=== PATIENT | male | born 1975 | race Caucasian/White ===

== ENCOUNTER → 2017-03-17 | Outpatient (CLI) | payer OTHER ==
[2017-03-17 08:00] LABS: ADJUSTED CALCIUM 9.1 mg/dL (8.4-10.2); ALBUMIN 4.4 gm/dL (3.5-5.0); BILIRUBIN,TOTAL 1.1 mg/dL (0.0-1.0); CALCIUM 9.4 mg/dL (8.4-10.2); CREATININE, serum 0.91 mg/dL (0.66-1.25); POTASSIUM 4.1 mmol/L (3.4-5.0); TOTAL PROTEIN 7.3 gm/dL (6.4-8.2)
[2017-03-17 08:29] LABS: PSA-TOTAL 0.43 ng/mL (0-4)
== END ==
LOC: COL.LAB 06:54
PROVIDERS: Dietitian, Registered
DX: Z00.00 Encounter for general adult medical examination without abnormal findings (principal)
CPT/HCPCS: G0103

== ENCOUNTER → 2019-08-01 | Outpatient (CLI) | payer BC | LOC: COL.LAB 09:58 | DX: Z12.5 Encounter for screening for malignant neoplasm of prostate (principal) ==

== ENCOUNTER → 2019-10-04 | Outpatient (CLI) | payer BC | LOC: COL.LAB 08:32 | DX: R53.83 Other fatigue (principal) ==

== ENCOUNTER → 2021-01-29 | Outpatient (CLI) | payer BC ==
[2021-01-29 13:01] LABS: ALBUMIN 4.5 gm/dL (3.5-5.0); CALCIUM 9.6 mg/dL (8.4-10.2); CREATININE, serum 0.89 (0.66-1.25); POTASSIUM 4.5 mmol/L (3.4-5.0); TOTAL PROTEIN 7.4 gm/dL (6.4-8.2)
[2021-01-29 13:09] LABS: CHOLESTEROL RISK RATIO 4.2
== END ==
LOC: COL.LAB 12:05
PROVIDERS: Family Medicine
DX: Z13.220 Encounter for screening for lipoid disorders (principal); Z13.228 Encounter for screening for other metabolic disorders; Z12.5 Encounter for screening for malignant neoplasm of prostate